=== PATIENT | male | born 1995 | race African-American/Black ===

== ENCOUNTER → 2022-01-11 12:49 | Outpatient (BNVA) | payer OTHER, SELFPAY | PROVIDERS: Visit Provider Internal Medicine | DX: S00.93XA Contusion of unspecified part of head, initial encounter (principal); W50.0XXA Accidental hit or strike by another person, initial encounter | CPT/HCPCS: 99202 ==

== ENCOUNTER → 2022-01-12 10:36 | Outpatient (BNVA) | payer OTHER, SELFPAY | PROVIDERS: Visit Provider Internal Medicine | DX: S00.93XA Contusion of unspecified part of head, initial encounter (principal); W50.0XXA Accidental hit or strike by another person, initial encounter | CPT/HCPCS: 99213 ==

== ENCOUNTER 2022-02-17 07:42 | Emergency (ER) | payer OTHER, SELFPAY ==
--- NOTE | ~2022-02-17 | XR_ITS ---
EXAMINATION: XR FINGER, LEFT CLINICAL INFORMATION: Finger caught on a door COMPARISON: None TECHNIQUE: 3 views of the left thumb FINDINGS: no fracture of the right lung. Mild degenerative changes of the upper and PET. Mild soft tissue swelling. No radiopaque foreign body. XR/XR finger LT min 2V IMPRESSION: No fracture.
[2022-02-17 07:49] VITALS: BP 144/91; PULSE 69; RESP 19; TEMP 36.6; O2SAT 97; BMI 25.0
--- NOTE | 2022-02-17 08:45 | ED.EXTPRO ---
HPI - Extremity Problem General Chief complaint: Extremity Injury, Upper Stated complaint: l hand caught in car door Time Seen by Provider: 02/17/22 08:23 Source: patient Mode of arrival: ambulatory Limitations: no limitations History of Present Illness HPI Narrative: 27-year-old male healthy presents to ED for left thumb pain. Patient states an hour ago he slammed his card door on his thumb. Patient denies any distress. Patient is able to move thumb. Patient denies any other trauma or symptoms Related Data Previous Rx's Medication Instructions Recorded naproxen 500 mg tablet 500 mg PO BID PRN pain 10 days #20 02/17/22 tabs Allergies Allergy/AdvReac Type Severity Reaction Status Date / Time No Known Allergies Allergy Verified 02/17/22 09:26 Review of Systems Review of Systems: Left thumb pain Yes all other systems are reviewed and are negative [facility] Social History Social History Advance Directives: No Advance Directives Information Provided: No Physical Exam Vital Signs: Vital Signs: Last Vital Signs Temp 98 F 02/17/22 07:49 Pulse 69 02/17/22 07:49 Resp 19 02/17/22 07:49 BP 144/91 H 02/17/22 07:49 Pulse Ox 97 02/17/22 07:49 O2 Del Method 02/17/22 07:49 BMI result Body Mass Index 25.0 Const: General: cooperative, healthy appearing, comfortable, no acute distress, well developed, alert, awake and Physically active Orientation/consciousness: patient oriented x3 HEENT: Head: Yes normal to inspection, Yes No palpable skull fracture present, Yes normocephalic, Yes atraumatic and No abrasion Eyes: General: appearance normal, both eyes and all related structures Neck: Neck: Yes normal visual inspection, Yes full ROM, Yes no lymphadenopathy, Yes no meningeal signs, Yes trachea midline, Yes supple, No anterior neck swelling and No tender Chest: Chest palpation & inspection: normal inspection of the chest and normal palpation of entire chest wall Resp: Effort & Inspection: normal respiratory effort and able to speak in complete sentences Auscultation: clear to auscultation bilaterally Cardio: Jugular venous distension: no JVD Heart sounds: S1 normal heart sound present and S2 normal heart sound present GI: Inspection: Yes normal to inspection and No abdominal wall ecchymosis Palpation (GI): Soft to palpation, not firm, nontender, no guarding and not rigid : General: No CVA tenderness and Yes no CVA tenderness Back/Spine/Pelvis: Back: no CVA tenderness, No CVA tenderness and No back tenderness Skin: General skin exam: no rashes or lesions noted and elasticity normal Neuro: General: patient oriented x3, gait normal, no meningeal signs and CN's II-XI intact bilaterally Cranial nerves: Yes CN's II-XII intact bilaterally Extrem: Hand/finger images: 1. Tenderness on palpation, but no ecchymosis, crepitus, or deformity. Patient has complete range of motion of thumb. Capillary refill is intact. Rest of extremity normal/motor/neuro/vascular exam intact 2. Very small subungual hematoma Psych: Appearance: grossly normal, well kempt and not disheveled Course Course Course Narrative: Patient sent for hand x-ray. Reevaluation(s) Reevaluation #1: Patient x-ray came back normal. Patient changes mind is not want me to drain subungual hematoma. Lidocaine ordered. Time: 09:44 Reevaluation #2: Lidocaine 6 mL 1% was used for digital block. 18 gauge needle was used for trephination which was successful. Patient placed in Velcro thumb spica Time: 10:45 MDM - Extremity (Nontraumatic) MDM Narrative Medical decision making narrative: contusion. thumb sprain. Subungal hematoma Discharge Plan Discharge Clinical Impression: Left thumb sprain, Contusion, Subungual hematoma of finger Patient Disposition: Home, Self-Care Instructions: Contusion in Adults (ED), Finger Sprain (ED) Additional Instructions: Your x-ray came back negative for fracture. Your subungual hematoma was drained. Please follow-up with your primary care provider for re-evaluation does no improvement. Will be placed in a Velcro thumb spica splint. Return to the ED for severe pain, redness, swelling, bluish discoloration, inability to move, coldness, erythema, pus discharge, foul odor, or any other concerning symptoms. Please follow up with PCP Prescriptions: New naproxen 500 mg tablet 500 mg PO BID PRN (Reason: pain) 10 Days Qty: 20 0RF Stand Alone Forms: Work/School Release Interventions: ED Discharge Assessment Last Done: 02/17/22 11:23 Discharge Date/Time: 02/17/22 11:24 Print Language: Turkmen
[2022-02-17] MEDS: Lidocaine HCl 1 % MPF 5 ML VIAL INFILTRATI ×2 (11:09)
[2022-02-17] MEDS: Lidocaine HCl 1 % MPF 2 ML VIAL 10 ML INFILTRATI (11:10)
== END 2022-02-17 11:24 | disposition home or self-care (01) ==
PROVIDERS: Emergency Provider Emergency Medicine
DX: S63.602A Unspecified sprain of left thumb, initial encounter (principal); S60.012A Contusion of left thumb without damage to nail, initial encounter; Y29.XXXA Contact with blunt object, undetermined intent, initial encounter; Y93.9 Activity, unspecified; Y92.9 Unspecified place or not applicable; Y99.9 Unspecified external cause status
CPT/HCPCS: 73140; 99282; 99284